=== PATIENT | female | born 1995 | race Two or more races ===

== ENCOUNTER 2024-12-13 10:45 | Emergency (ER) | payer OTHER ==
[~2024-12-13] VITALS: Ht 160 cm; Wt 109.8 kg
[2024-12-13 10:58] VITALS: TEMP 98.2
[2024-12-13 11:02] VITALS: BP 121/65; PULSE 82; RESP 16; O2SAT 98
[2024-12-13 12:13] LABS: Basophils # (auto) 0.1 10 ^3/uL (0-0.2); Basophils % (auto) 0.6 % (0.0-2.0); Eosinophils # (auto) 0.1 10 ^3/uL (0-0.8); Eosinophils % (auto) 1.6 % (0.0-7.0); Hematocrit 40.7 % (36.0-46.0); Hemoglobin 13.5 g/dL (12.2-16.2); Lymphocytes # (auto) 2.3 10 ^3/uL (0.4-5.4); Lymphocytes % (auto) 26.7 % (10.0-50.0); Mean Corpuscular Hemoglobin 28.3 pg (28.0-32.0); Mean Corpuscular Hgb Conc. 33.1 g/dL (32.0-36.0); Mean Corpuscular Volume 85.4 fL (80.0-100.0); Monocytes # (auto) 0.7 10 ^3/uL (0-1.3); Monocytes % (auto) 8.1 % (0.0-12.0); Neutrophils # (auto) 5.5 10 ^3/uL (1.6-8.6); Platelet Count (auto) 299 10^3/uL (140-450); Red Blood Cells 4.76 10^6/uL (4.0-5.20); Red Cell Distribution Width 14.5 % (11.8-14.3); White Blood Cell 8.7 10^3/uL (4.4-10.8)
--- NOTE | 2024-12-13 12:44 | DVH ---
EXAM: US Pelvis Transabdominal and Transvaginal, Complete CLINICAL INDICATION: VAGINAL BLEEDING, VIABILITY TECHNIQUE: Real-time complete transabdominal and transvaginal pelvic ultrasound with image documenta tion. Transvaginal imaging was used for better evaluation of the endometrium and adnexa. COMPARISON: None FINDINGS: UTERUS/CERVIX: Unremarkable. Normal endometrial stripe thickness. No myometrial mass. The uterus measures 8.0 x 4.6 x 4.5 cm. RIGHT OVARY: Unremarkable. Normal blood flow. The right ovary measures 3.2 x 3.5 x 2.4 cm. LEFT OVARY: Unremarkable. Normal blood flow. The left ovary measures 2.6 x 1.6 x 1.9 cm. FREE FLUID: No free fluid. BLADDER: Unremarkable as visualized. Wall is normal thickness for degree of distention. OTHER FINDINGS: . . Gestational sac 1.78 cm. CRL 0.51 cm. ESTEBAN 08/06/2025. Yolk sac visualized. The heart rate 118 beats per minute. . Subchorionic bleed measuring up to 1.1 cm. IMPRESSION: A single live intrauterine corresponding to 6 weeks and 2 day gestation.
[2024-12-13 12:55] LABS: Urine Bacteria None Seen /hpf (None Seen)
[2024-12-13 13:17] LABS: Urine Blood 1+ /uL (Negative); Urine Clarity Clear (Clear); Urine Protein, UAD Negative (Negative); Urine Specific Gravity 1.003 (1.001-1.035); Urine Squamous Epithelial Cell FEW /hpf (<5); Urine Urobilinogen Normal (Negative); Urine WBC 1 /HPF (0-5)
[2024-12-13 13:18] LABS: Urine Color Straw (Yellow)
--- NOTE | 2024-12-13 13:38 | ED.PDOC ---
JEWELRY FACER HPI Comments A 29 YEAR OLD FEMALE PRESENTS TO THE ED WITH COMPLAINT OF VAGINAL SPOTTING DURING . PATIENT STATES SHE IS CURRENTLY AND BEGAN TO EXPERIENCE VAGINAL SPOTTING EARLIER TODAY. PATIENT NOTES THAT SHE HAS A HISTORY OF A SUBCHORIONIC BLEED THAT WAS DISCOVERED DURING HER MOST RECENT ULTRASOUND. PATIENT DENIES DYSURIA, HEMATURIA, VAGINAL DISCHARGE, FEVER, CHILLS, SHORTNESS OF BREATH, CHEST PAIN, ABDOMINAL PAIN, NAUSEA, VOMITING, HEADACHE, OR OTHER COMPLAINTS. NO OTHER SYMPTOMS OR MODIFYING FACTORS AT THIS TIME. PATIENT IS ALERT, ORIENTED X 4, AND HAS STEADY GAIT. Chief Complaint: Vaginal Bleed Time Seen by MD: 11:40 Reviewed Notes: Nurses Notes, Medications, Allergies Allergies: Coded Allergies: NO KNOWN ALLERGIES (Unverified , 12/13/24) Information Source: Patient Mode of Arrival: Ambulatory Timing: Hours Prehospital treatment: None Severity: Moderate Vaginal Discharge: None Vaginal Lesions: None Bleeding Quality: Bright Red Vaginal Mass: None Onset Of Mass/Bleeding: Spontaneous Sexual Activity: Last Consensual [place]: Unknown Control: None History of: Current Blood Type: Unknown Symptoms of Possible : None Associated Signs and Symptoms: Vaginal Bleeding Past Medical History PAST MEDICAL HISTORY: Denies Surgical History: Denies all surgeries ILLUMINATING ENGINEER History: No Pertinent ILLUMINATING ENGINEER History Family History Family History: Reviewed,noncontributory to illness Social History Smoker: Non-Smoker Alcohol: Denies ETOH Use Drugs: Denies Drug Use Lives In: Home Constitutional: denies: chills, diaphoresis, fatigue, fever, malaise, sweats, weakness, others EENTM: denies: blurred vision, double vision, ear bleeding, ear discharge, ear drainage, ear pain, ear ringing, eye pain, eye redness, hearing loss, mouth pain, mouth swelling, nasal discharge, nose bleeding, nose congestion, nose pain, photophobia, tearing, throat pain, throat swelling, voice changes, others Respiratory: denies: cough, hemoptysis, orthopnea, SOB at rest, shortness of breath, SOB with excertion, stridor, wheezing, others Cardiovascular: denies: chest pain, dizzy spells, diaphoresis, Dyspnea on exertion, edema, irregular heart beat, left arm pain, lightheadedness, palpitations, PND, syncope, others Gastrointestinal: denies: abdomen distended, abdominal pain, blood streaked bowels, constipated, diarrhea, dysphagia, difficulty swallowing, hematemesis, melena, nausea, poor appetite, poor fluid intake, rectal bleeding, rectal pain, vomiting, others Genitourinary: reports: abnormal vagina bleeding (VAGINAL SPOTTING ), ; denies: burning, dyspareunia, dysuria, flank pain, frequency, hematuria, incontinence, pain, vagina discharge, urgency, others Neurological: denies: dizziness, fainting, headache, left sided numbness, left sided weakness, numbness, paresthesia, pre-existing deficit, right sided numbness, right sided weakness, seizure, speech problems, tingling, tremors, weakness, others Musculoskeletal: denies: back pain, gout, joint pain, joint swelling, muscle p ain, muscle stiffness, neck pain, others Integumetry: denies: bruises, change in color, change in hair/nails, dryness, laceration, lesions, lumps, rash, wounds, others Allergic/Immunocompromised: denies: Difficulty Healing, Frequent Infections, Hives, Itching, others Hematologic/Lymphatic: denies: anemia, blood clots, easy bleeding, easy bruising, swollen glands, others Endocrine: denies: excessive hunger, excessive sweating, excessive thirst, excessive urination, flushing, intolerance to cold, intolerance to heat, unexplained weight gain, unexplained weight loss, others Psychiatric: denies: anxiety, bipolar disorder, depression, hopeless, panic disorder, schizophrenia, sleepless, suicidal, others All Other Systems: Reviewed and Negative Physical Exam General Appearance: No Apparent Distress, Normal HEENT: Normal ENT Inspection, PERRL/EOMI, Pharynx Normal, TMs Normal Neck: Full Range of Motion, Non-Tender, Normal, Normal Inspection Respiratory: Chest Non-Tender, Lungs Clear, No Accessory Muscle Use, No Respiratory Distress, Normal Breath Sounds Cardiovascular: No Edema, No JVD, No Murmur, No Gallop, Normal Peripheral Pulses, Regular Rate/Rhythm Breast Exam: Deferred Gastrointestinal: No Organomegaly, Non Tender, No Pulsatile Mass, Normal Bowel Sounds, Soft Genitalia: Deferred Pelvic: Normal Adnexa, Normal External Exam, Vaginal Bleeding (VAGINAL SPOTTING, NO VAGINAL BLEEDING AND BLOOD CLOTS. ) Rectal: Deferred Extremities: No calf tenderness, Normal capillary refill, Normal inspection, Normal range of motion, Non-tender, No pedal edema Musculoskeletal : Apperance: Normal Neurologic: Alert, drafting teacher II-XII nml as Tested, No Motor Deficits, Normal Affect, Normal Mood, No Sensory Deficits Cerebellar Function: Normal Reflexes: Normal Skin: Dry, Normal Color, Warm Peripheral Pulses: 2+ carotid (R), 2+ carotid (L) Lymphatic: No Adenopathy Was a procedure done? Was a procedure done?: No Differential Diagnosis (ILLUMINATING ENGINEER) Vaginal Bleeding: - Complete, - Missed, - Threatened, Ectopic , UTI, Vaginitis Mass / Lesion: N/A Vaginal Discharge: N/A X-Ray, Labs, Meds, VS Vital Signs Date Time Temp Pulse Resp B/P (MAP) Pulse Ox O2 Delivery O2 Flow Rate FiO2 12/13/24 11:02 98.2 82 16 121/65 (83) 98 12/13/24 10:58 82 16 98 Room Air 12/13/24 10:58 98.2 82 16 121/65 (83) 98 98.2 Lab Test 12/13/24 12:55 12/13/24 11:39 Range/Units Urine Color Straw Yellow Urine Clarity Clear Clear Urine pH 7.0 5.0-9.0 Urine Specific [place] 1.003 1.001-1.035 Urine Protein Negative Negative Urine Ketones Negative Negative Urine Blood 1+ H Negative /uL Urine Nitrite Negative Negative Urine Bilirubin Negative Negative Urine Urobilinogen Normal Negative mg/dL Urine Leukocyte Esterase Negative Negative /uL Urine RBC 1 0 - 4 /hpf Urine Microscopic WBC 1 0-5 /HPF Urine Squamous Epithelial Cells Few <5 /hpf Urine Bacteria None seen None Seen /hpf Urine Glucose Normal Normal mg/dL White Blood Count 8.7 4.4-10.8 10^3/uL Red Blood Count 4.76 4.0-5.20 10^6/uL Hemoglobin 13.5 12.2-16.2 g/dL Hematocrit 40.7 36.0-46.0 % Mean Corpuscular Volume 85.4 80.0-100.0 fL Mean Corpuscular Hemoglobin 28.3 28.0-32.0 pg Mean Corpuscular Hemoglobin Concent 33.1 32.0-36.0 g/dL Red Cell Distribution Width 14.5 H 11.8-14.3 % Platelet Count 299 140-450 10^3/uL Mean Platelet Volume 8.9 6.9-10.8 fL Neutrophils (%) (Auto) 63.0 37.0-80.0 % Lymphocytes (%) (Auto) 26.7 10.0-50.0 % Monocytes (%) (Auto) 8.1 0.0-12.0 % Eosinophils (%) (Auto) 1.6 0.0-7.0 % Basophils (%) (Auto) 0.6 0.0-2.0 % Neutrophils # (Auto) 5.5 1.6-8.6 10 ^3/uL Lymphocytes # (Auto) 2.3 0.4-5.4 10 ^3/uL Monocytes # (Auto) 0.7 0-1.3 10 ^3/uL Eosinophils # (Auto) 0.1 0-0.8 10 ^3/uL Basophils # (Auto) 0.1 0-0.2 10 ^3/uL Nucleated Red Blood Cells 0.0 % Beta HCG, Quantitative 79385.9 H 1.5-4.2 mIU/mL EXAM: US Pelvis Transabdominal and Transvaginal, Complete CLINICAL INDICATION: VAGINAL BLEEDING, VIABILITY TECHNIQUE: Real-time complete transabdominal and transvaginal pelvic ultrasound with image documentation. Transvaginal imaging was used for better evaluation of the endometrium and adnexa. COMPARISON: None FINDINGS: UTERUS/CERVIX: Unremarkable. Normal endometrial stripe thickness. No myometrial mass. The uterus measures 8.0 x 4.6 x 4.5 cm. RIGHT OVARY: Unremarkable. Normal blood flow. The right ovary measures 3.2 x 3.5 x 2.4 cm. LEFT OVARY: Unremarkable. Normal blood flow. The left ovary measures 2.6 x 1.6 x 1.9 cm. FREE FLUID: No free fluid. BLADDER: Unremarkable as visualized. Wall is normal thickness for degree of distention. OTHER FINDINGS: . . Gestational sac 1.78 cm. CRL 0.51 cm. ESTEBAN 08/06/2025. Yolk sac visualized. The heart rate 118 beats per minute. . Subchorionic bleed measuring up to 1.1 cm. IMPRESSION: A single live intrauterine corresponding to 6 weeks and 2 day gestation. ATED BY: PEG MORALES MD DICTATED DATE/TIME: 12/13/24 1241 SIGNED BY: PEG MORALES MD SIGNED DATE/TIME: 12/13/24 1241 CC: X-Ray, Labs, Meds, VS Comment EXTERNAL MEDICAL RECORDS REVIEWED: [NONE] INDEPENDENT HISTORIANS: [NONE] SOCIAL DETERMINANTS OF HEALTH: [NONE] LABS ORDERED: CBC, UA, BETA HCG QUANT, ABO/RH REVIEWED AND INTERPRETED RESULTS: BETA HCG QUANT 31,589.9, BLOOD 1+ IMAGING ORDERED: US OB < 14 WKS TREATMENTS ORDERED: NONE PROCEDURES PERFORMED: NONE CRITICAL CARE TIME: NONE I HAVE DISCUSSED THE PATIENT WITH THE ATTENDING PHYSICIAN DR. BRADY AND SHE AGREES WITH THE PATIENT'S PLAN OF CARE AND DISPOSITION. BASED ON HISTORY OF PRESENT ILLNESS, AND PHYSICAL EXAM, PATIENT WILL BE DISCH ARGED HOME. SHARED DECISION MAKING: PATIENT INSTRUCTED TO FOLLOW UP WITH PRIMARY CARE PROVIDER IN 1-2 DAYS FOR RE-EVALUATION OF SYMPTOMS. PATIENT VERBALIZES UNDERSTANDING TO RETURN TO ED FOR NEW OR WORSENING SYMPTOMS OR IF FOLLOW UP WITH PCP CANNOT BE OBTAINED. PATIENT FEELS COMFORTABLE GOING HOME AT THIS TIME. ALL QUESTIONS ADDRESSED AT TIME OF DISCHARGE. Images Reviewed?: Images reviewed and evaluated by me Time of 1ST Reevaluation: 13:40 Reevaluation 1ST: Improved Patient Education/Counseling: Diagnosis, Treatment, Need For Follow Up Family Education/Counseling: Diagnosis, Treatment, Need For Follow Up Medical Screening: No EMC Exist At This Time Departure 1 Departure Time of Disposition: 13:40 Impression: Primary Impression: Vaginal spotting Additional Impression: Threatened in first trimester Disposition: HOME / SELF CARE / HOMELESS Condition: Stable Additional Instructions: FOLLOW-UP WITH PCP AND JEWELRY FACER IN 1 TO 2 DAYS. TAKE MEDICATIONS PRESCRIBED. RETURN TO ED FOR ANY NEW OR WORSENING SYMPTOMS. Discharged With: Self Critical Care Note Critical Care Time?: No Stability Stability form required: No I personally scribed for ABDI RICKETTS ([email or web address]) on 12/13/24 at 13:38. Electronically submitted by Earl Bullock ([email or web address]). ABDI RICKETTS Dec 13, 2024 13:38
== END 2024-12-13 13:41 | disposition home or self-care (01) ==
LOC: ER 10:45
DX: O20.0 Threatened abortion (principal); N93.9 Abnormal uterine and vaginal bleeding, unspecified; Z3A.01 Less than 8 weeks gestation of pregnancy
CPT/HCPCS: 36415; 76801; 76817; 81001; 84702; 85025; 86900; 86901

== ENCOUNTER 2025-08-06 06:43 | Observation (INO) | payer OTHER ==
[2025-08-06] MEDS ORDERED: PREN1TAB71 OR (16:47)
--- NOTE | 2025-08-06 17:11 | DVH ---
EXAM: US BIOPHYSICAL PROFILE HISTORY: TERM COMPARISON: None TECHNIQUE: Multiple transabdominal real-time grayscale sonographic images through the gravid uterus of the fetus with duplex Doppler color flow and M-mode spectral analysis Findings/Impression: Single live intrauterine in vertex presentation with heart rate of 156 bpm. Biophysical profile was performed with 2 points for respirations, 2 points for movement, 2 points for tone and 2 points for amniotic fluid index. Biophysical profile score of 8/8. Amniotic fluid is within normal limits with MARTÍN 13.5 cm and MVP 5.6 cm. Normal MARTÍN (5-25 cm) Normal MVP (2-8 cm)
--- NOTE | 2025-08-07 15:35 | DVHDS2 ---
Physician Discharge Progress N Final Diagnosis: iup at 40wks labor check Operations or Procedures: Operations or Procedures nst reactive reviwed,sono Condition on Discharge: Good Disposition: Home Discharge Instructions: Diet: Regular Activity: No Restrictions, As Tolerated Medications: na Follow Up Care: Specialist: 2d Discharge Statement: "Patient was advised to return to the ER or call 911 if any headaches, dizziness, shortness of breath, chest pain, abdominal pain, bleeding, fevers, or worsening of medical condition. Patient was counseled about treatment plan, medications, possible side effects, patientverbalized understanding. All questions were answered to the best of my ability. This discharge took greater then 30 minutes in planning, reviewing documentation, counseling the patient, and discussing with other team members." Visit Coding OBGYN Date of Service: Aug 06, 2025 Billing Provider: TAMARA YOUNG DO STAGE DIRECTOR Common Visit Codes: [id number] OBS CARE (HIGH) STAGE DIRECTOR Procedure Codes: 06951-79- NON-STRESS TEST TAMARA YOUNG DO Aug 07, 2025 15:35
== END 2025-08-06 18:00 | disposition home or self-care (01) ==
LOC: UNDOADMOB 16:13 → LDRP 16:13 → UNDODISOB 18:00
PROVIDERS: ADMIT Obstetrics & Gynecology; ATTEND Obstetrics & Gynecology
DX: O48.0 Post-term pregnancy (principal); Z3A.40 40 weeks gestation of pregnancy; Z98.890 Other specified postprocedural states
CPT/HCPCS: 76818; 81002; G0378; 59025; 76819

== ENCOUNTER 2025-08-08 04:46 | Inpatient (IN) | payer OTHER ==
[~2025-08-08] VITALS: Ht 160 cm; Wt 122.9 kg
[~2025-08-08 04:46] MED LIST: PREN1TAB71 OR
--- NOTE | 2025-08-08 09:53 | DVH ---
BIOPHYSICAL PROFILE HISTORY: Term TECHNIQUE: Multiple transabdominal real-time grayscale sonographic images through the gravid uterus o f the fetus with duplex doppler color flow and M-mode spectral analysis FINDINGS: BIOPHYSICAL PROFILE: breathing score: 2 movement score: 2 tone score: 2 Quantitative MARTÍN score: 2 (MARTÍN: 8.45 cm.) Total score: 8/8 Single live fetus in cephalic presentation. heart rate 139 beats per minute. Posterior placenta without previa or abruption Biophysical profile score 8/8 corresponding to an ESTEBAN of 08/06/25 IMPRESSION: Biophysical profile score: 8/8
--- NOTE | 2025-08-08 10:09 | DVHDS2 ---
Physician Discharge Progress N Final Diagnosis: IUP 40 wk, Term Operations or Procedures: Operations or Procedures NST/BPP MARTÍN all WNL Condition on Discharge: Stable Disposition: Home Discharge Instructions: Diet: Regular Activity: Light activity Follow Up/Referral: as scheduled Medications: NA Follow Up Care: Discharge Statement: "Patient was advised to return to the ER or call 911 if any headaches, dizziness, shortness of breath, chest pain, abdominal pain, bleeding, fevers, or worsening of medical condition. Patient was counseled about treatment plan, medications, possible side effects, patientverbalized understanding. All questions were answered to the best of my ability. This discharge took greater then 30 minutes in planning, reviewing documentation, counseling the patient, and discussing with other team members." Visit Coding OBGYN Date of Service: Aug 08, 2025 Billing Provider: HAJA QUINTERO DO CORE DIPPER Common Visit Codes: 68768-RGZ/OBS SAME DATE (MOD) CORE DIPPER Procedure Codes: 51455-57- NON-STRESS TEST HAJA QUINTERO DO Aug 08, 2025 10:09
[2025-08-08 13:41] LABS: Hematocrit 38.0 % (36.0-46.0); Hemoglobin 12.7 g/dL (12.2-16.2); Mean Corpuscular Hemoglobin 28.5 pg (28.0-32.0); Mean Corpuscular Volume 85.8 fL (80.0-100.0); Nucleated Red Blood Cells % 0.1 %
[2025-08-08 13:56] LABS: Protein, Urine 10.0 mg/dL (1-14)
[2025-08-08 13:56] LABS: INR 0.99 (0.9-1.15); Partial Thromboplastin Time 30.4 SEC (24.5-34.5); Prothrombin Time 10.5 sec (9.3-11.8)
[2025-08-08 14:02] LABS: Alanine Aminotransferase 11 U/L (7-40); Anion Gap 12 (5-15); BUN/Creatinine Ratio 6.6 (10.0-20.0); Calcium 9.1 mg/dL (8.7-10.4); Carbon Dioxide 20 mmol/L (20-31); Chloride 106 mmol/L (98-107); Glucose 78 mg/dL (74-106); Potassium 4.3 mmol/L (3.5-5.1); Sodium 138 mmol/L (136-145); Total Protein 6.5 g/dL (5.7-8.2); Uric Acid 4.3 mg/dL (3.1-7.8)
[2025-08-08 14:02] LABS: Urine Protein, UAD Negative (Negative)
[2025-08-08 14:03] LABS: Albumin 3.8 g/dL (3.2-4.8); Alkaline Phosphatase 141 U/L (46-116); Bilirubin, Total 0.6 mg/dL (0.2-1.0); Blood Urea Nitrogen 5 mg/dL (9-23)
--- NOTE | 2025-08-08 15:15 | DVHHP2 ---
OB CC & HPI Date Date of Admission: Aug 08, 2025 Patient Identification: : 1 Para: 0 EGA: 40.2 Chief Complaints: Reason for admission: active labor History of Present Complaints 30y G1po IUP 40.2 wk. Normal Presented for NST and found to have some contractions Observed for labor w/ subsequent dilation to 3-4 cm. Moderate pain, requesting epidural Past Medical History Cardiac: No pertinent Hx Pulmonary: No pertinent Hx Central Nervous System: No pertinent Hx GI: No pertinent Hx Hemotology/Oncology: No pertinent Hx Hepatobiliary: No pertinent Hx Psychiatric: No pertinent Hx Musculoskeletal: No pertinent Hx Rheumotologic: No pertinent Hx Infectious Disease: No peritnent Hx ENT: No pertinent Hx Renal/: No pertinent Hx Endocrine: No pertinent Hx Dermatology: No pertinent Hx Past Surgical History: No pertinent Hx OB History OB History Care: Good Care Ultrasounds: Normal mid trimester US Obstetrical Complications: None Medical Complications: None Allergies: Coded Allergies: NO KNOWN ALLERGIES (Unverified , 12/13/24) Home Meds Reported Medications Vit W/ Ferrous Fumara (PNV PLUS MULTIVI) Plus Tab, 1 OR, TAB 08/06/25 Family & Social History Family/Social History Blood Type: O+ Rubella: immune RPR/VDRL: Negative GBS Status: Negative HBsAG: Negative Review of Systems Constitutional: No symptom reported Ears, Nose, & Throat: No symptom reported Eyes: No symptom reported Pulmonary/Respiratory: No symptom reported Cardiovascular: No symptom reported Gastrointestinal: No symptom reported Genitourinary: No symptom reported Musculoskeletal: No symptom reported Skin: No symptom reported Psychiatric: No symptom reported Endocrine: No symptom reported Hemotologic/Lymphatic: No symptom reported OB Admission Exam Physical Exam HEENT: NCAT Heart: Rhythm Normal Lungs: Clear Abdomen: Gravid Extremities: Normal Reflexes: Normal Cervical Dilatation: 3cm Effacement: 50% Station: -2 Membranes: Intact Heart Rate: 130's Accelerations: Accelerations Present Decelerations: No Decelerations Short Term Variability: Present Market Research Manager Variability: Average (6-25) Contractions on Admission: 6-10 Minutes Apart Intensity: Moderate OB Plan Plan Admitting Diagnosis: Term IUP in early labor Categ 1 tracing GBS neg Plan: Expectant Management Other Plan: Admit for labor and delivery informed consent for treatment obtained Visit Coding OBGYN Date of Service: Aug 08, 2025 Billing Provider: HAJA QUINTERO DO PET COUNSELOR Common Visit Codes: [id number] INP/OBS CARE (HIGH) HAJA QUINTERO DO Aug 08, 2025 15:15
[2025-08-08] MEDS ORDERED: NALBUPHINE HCL 10 MG/1ml INJECTION IV PRN (15:45)
[2025-08-08] MEDS: LIDOCAINE HCL 2 %PF INJ 10ML AMP IJ ONE (16:15)
[2025-08-08] MEDS ORDERED: ONDANSETRON HCL 4 MG/2 ML VIAL IV PRN (16:15)
[2025-08-08] MEDS: LACT. RINGERS/OXYTOCIN 20UNITS 500 ML IV ONE ×2 (16:15→16:45)
[2025-08-08] MEDS: NALOXONE HCL 0.4 MG/ML VIAL IV ONE (16:15)
[2025-08-08] MEDS: LACTATED RINGER'S 1,000 ML IV SCH (16:32)
[2025-08-08] MEDS: LACTATED RINGER'S 1,000 ML IV ONE (16:32)
[2025-08-08] MEDS: WITCH HAZEL-GLYCERIN PAD TOP PRN (16:32)
[2025-08-08] MEDS: DERMOPLAST 60ML BOTTLE TOP PRN (16:32)
[2025-08-08] MEDS: PHISODERM TOP SOLN 240ML BTL TOP PRN (16:32)
[2025-08-08 17:16] LABS: Amphetamine Screen, Urine Neg (NEGATIVE); Barbiturate Scree,Urine Neg (NEGATIVE); Benzodiazephine Screen, Urine Neg (NEGATIVE); Cannabinoid Screen, Urine Neg (NEGATIVE); Cocaine Screen, Urine Neg (NEGATIVE); Opiate Scree,Urine Neg (NEGATIVE); Phencyclidine Screen, Urine Neg (NEGATIVE)
[2025-08-08] MEDS: ROPIVACAINE HCL 100 ML ONE (17:27)
[2025-08-08] MEDS: fentaNYL CITRATE 100 MCG/2 ML VL IV ONE (17:27)
--- NOTE | 2025-08-08 17:39 | EPIDURAL ---
Anesthesia Procedural Note - Epidural Informed consent obtained?: Yes Medication Administered: Fentanyl 100 mcg Spinal level of insertion: L4-L5 Test dose of lidocaine & Epine: Negative Infusion started: Yes Start time: 16:55 End time: 17:25 Procedure description Procedure description: Called for labor analgesia. History taken, chart reviewed and patient examined. Patient is requesting epidural. Informed consent for CSE obtained (BP 120/80 HR 104 spO2 99). Sitting position, sterile prep and drape. L4-5 space infiltrated with 1% lido. Epidural needle placed with JSOIE at 7cm. 25G sinal needle +clear SF. 15mcg fentanyl given IT. Epidural catheter secured at 13cm. Aspiration and test dose (3cc1.5% lido with epi) negative (BP 115/74 HR 96 spO2 98). 85mcg fentanyl given via epidural. Patient reports good pain relief. 0.2% ropivacaine infusion started ((BP 113/69 HR 88 spO2 99). Will follow as needed. CLARISA SMITH MD Aug 08, 2025 17:39
[2025-08-08] MEDS ORDERED: diphenhdrAMINE HCL 50 MG/1 ML VL IV PRN (17:45)
[2025-08-08] MEDS ORDERED: TERBUTALINE SULFATE 1 MG/ML 1ML VIAL SC PRN (19:15)
[2025-08-08] MEDS: LACT. RINGERS/OXYTOCIN 20UNITS 1,000 ML IV SCH (19:49)
[2025-08-09] VITALS (14 sets, daily range): BP systolic 108–136; BP diastolic 60–84; PULSE 69–92; RESP 16–18; TEMP 98.2–99; O2SAT 97–100
--- NOTE | 2025-08-09 01:57 | DVHPN2 ---
Progress Note - Dictate Date Seen: Aug 09, 2025 Medical Necessity Reason Pt with a Central, PICC or Fol: No Subjective G1Po in labor 40+ wk Patient complete 10cm dilated x 2 hours vital signs Vital Sign Date Time Temp Pulse Resp B/P (MAP) Pulse Ox O2 Delivery O2 Flow Rate FiO2 08/08/25 17:27 113/59 Gen: Alert, Moderate pain Abd: obese, Gravid Cervix: C/C/+1 + Caput noted FHR: 170's x 30 mins w/ mod variability, prolonged decel x 2 mins w /pushing. Previously recurrent moderate variable decels (Categ 2) Clinical EFW 8lbs medications Current Medications Medications Dose Ordered Sig/Reva Route Start Time Stop Time Status Last Admin Dose Admin Lactated Ringer's 1,000 ml @ 125 mls/hr Q8H IV 08/08/25 15:45 08/09/25 01:10 125 MLS/HR Nalbuphine HCl 10 mg Q4HP PRN IV 08/08/25 15:45 Witch Sivan 1 pad PRN PRN TOP 08/08/25 15:45 08/08/25 16:32 1 PAD Sodium Lauryl Sulfate 240 ml PRN PRN TOP 08/08/25 15:45 08/08/25 16:32 240 ML Benzocaine 1 applic PRN PRN TOP 08/08/25 15:45 08/08/25 16:32 1 APPLIC Lidocaine HCl 20 ml ONCE PRN IJ 08/08/25 15:45 Ondansetron HCl 4 mg Q6HPRN PRN IV 08/08/25 16:15 Diphenhydramine HCl 25 mg Q6HP PRN IV 08/08/25 17:45 Oxytocin 1,000 ml @ 6 ml/hr Q24H IV 08/08/25 19:15 08/08/25 19:49 6 ML/HR Terbutaline Sulfate 0.25 mg ONCE PRN SC 08/08/25 19:15 laboratory and microbiology Laboratory Tests 08/08/25 13:11 Test 08/08/25 13:11 Range/Units Serum Glucose 78 74-106 mg/dL Assessment/Plan 1. Arrest of descent 2. CPD 3. Persistant categ 2 FHR , fetus at risk Plan: Consented for primary C/S delivery due to poor pushing effort and intolerance to labor, no descent with pushing. station not appropriate for operative vaginal delivery (Vacuum) R/B/A of C/S discussed. Risks of scar, pain, bleeding, infection, poss injury to bowel/bladder, vessels, blood transfusion discussed. Plan discussed with: Patient, Other (RN and Anesthesia MD) HAJA QUINTERO DO Aug 09, 2025 01:57
[2025-08-09] MEDS: LIDOCAINE HCL 2 %PF INJ 10ML AMP IJ ONE ×2 (01:58→02:23)
[2025-08-09] MEDS ORDERED: BUPIVACAINE/DEXTROSE MPF 0.75% 2 ML AMP IT ONE (02:15)
[2025-08-09] MEDS ORDERED: KETOROLAC TROMETH 30 MG/ML 1ML VIAL ONE (02:15)
[2025-08-09] MEDS ORDERED: GLYCOPYRROLATE 0.2 MG/ML 1ML VIAL ONE (02:15)
[2025-08-09] MEDS ORDERED: ONDANSETRON HCL 4 MG/2 ML VIAL ONE (02:15)
[2025-08-09] MEDS: LACTATED RINGER'S 1,000 ML IV SCH ×2 (02:15→05:00)
[2025-08-09] MEDS ORDERED: fentaNYL CITRATE 100 MCG/2 ML VL ONE (02:15)
[2025-08-09] MEDS ORDERED: MORPHINE SULF PF 5 MG/10 ML VIAL ONE (02:15)
[2025-08-09] MEDS: LACTATED RINGER'S 1,000 ML IV ONE (02:15)
[2025-08-09] MEDS: AZITHROMYCIN 500MG/ 250ML 250 ML IV ONE ×2 (02:28→02:29)
[2025-08-09] MEDS: ROPIVACAINE HCL 100 ML ONE (02:30)
[2025-08-09] MEDS: ceFAZolin 2 GM/D5W50ml 50 ML IV ONE (03:00)
[2025-08-09] MEDS: ceFAZolin 1GM/50ML 50 ML IV ONE (03:00)
[2025-08-09] MEDS ORDERED: MIDAZOLAM HCL 2MG/2ML 2ml VIAL (1mg/ml) ONE (03:13)
[2025-08-09] MEDS: TRANEXAMIC ACID 10 ML ONE (03:13)
[2025-08-09] MEDS ORDERED: NALOXONE HCL 0.4 MG/ML VIAL IV PRN (04:00)
[2025-08-09] MEDS ORDERED: ONDANSETRON HCL 4 MG/2 ML VIAL IV PRN ×2 (04:00→05:00)
[2025-08-09] MEDS ORDERED: diphenhdrAMINE HCL 50 MG/1 ML VL IV PRN (04:00)
--- NOTE | 2025-08-09 04:10 | DVHOP ---
DATE OF SURGERY: 08/09/2025 PREOPERATIVE DIAGNOSES: * Term intrauterine 40 weeks and 3 days. * Category 2 heart rate tracing. * Arrest of descent. * Cephalopelvic disproportion. FINAL DIAGNOSES: * Term intrauterine 40 weeks and 3 days. * Category 2 heart rate tracing. * Arrest of descent. * Cephalopelvic disproportion. * Persistent occiput posterior. * Meconium fluid. * Uterine Atony PROCEDURES PERFORMED: Primary low transverse section via Pfannenstiel skin incision. SURGEON: Kenn Jaffe DO BAKER HELPER: Skein Yard Drier. TYPE OF ANESTHESIA: Epidural. ANESTHESIOLOGIST: Yancy Friedman MD DESCRIPTION OF FINDINGS: Delivery of a liveborn female , cephalic presentation, occiput posterior, caput and head molding present, no nuchal cord, 3+ particulate meconium fluid, normal placenta, 3-vessel cord, uterine atony, 2-layer uterine closure, normal bilateral fallopian tubes and ovaries. TECHNICAL PROCEDURE: After informed consent was obtained, the patient was taken to the operating room where her epidural anesthesia was found to be adequate. She was placed in the supine position with a slight leftward tilt. She was sterilely prepped and draped in the usual fashion. A Pfannenstiel skin incision was made with the scalpel. The incision developed sharply to the underlying layer of fascia. The fascia was tented and the rectus muscles dissected off the rectus fascia. Entry into the peritoneal cavity was performed bluntly. The peritoneal incision was extended superiorly and inferiorly with good visualization of the bladder. The Rj O retractor was placed into the incision. Using a 2nd scalpel, the lower uterine segment was incised in a low transverse fashion. The uterus was entered bluntly. The uterine incision was manually stretched. The baby was found to be in occiput posterior position with meconium fluid present. The baby was delivered atraumatically. After delivery of the , the nose and mouth were suctioned. The cord was clamped and cut and the baby handed off to waiting pediatric team. Cord blood and cord gases were obtained. The placenta was spontaneously delivered. The uterus was exteriorized and cleared of all clots and debris using moist laparotomy sponges. The uterine incision was repaired in 2 layers using #0 Stratafix spiral in 2 layers. Excellent tissue approximation and hemostasis was obtained. The uterus was returned to the abdomen. The cul-de-sac and pericolic gutters were cleared of all clots and debris. The abdomen was irrigated with sterile water. SNoW was placed in the patient's right lower quadrant at the site for added hemostasis. All instrumentation was removed from the patient's abdomen. The lap counts were correct. The peritoneum was not closed. The rectus fascia was then closed using #1 PDS in continuous running fashion with good tissue approximation. The subcutaneous tissue was irrigated, bleeding points controlled with cautery. The subcutaneous tissue was closed in continuous fashion using 2-0 plain gut. The skin was closed in subcuticular fashion using 2-0 Monocryl. A thin layer of Dermabond was then placed over the incision. After the Dermabond dried, the Sylke sterile dressing was placed over the incision. The patient tolerated the procedure well. Sponge, lap, and needle counts were correct x 4. INTRAOPERATIVE COMPLICATIONS: None. MEDICATIONS: Ancef 3 g IV, azithromycin 500 mg IV, IV Pitocin, tranexamic acid IV. SPECIMENS: Cord blood, cord gases, placenta. POSTOPERATIVE CONDITION: Stable. EBL: 900 mL DO REBECCA Simons/REMY TID: [id number] RECEIPT: [id number] MTDD
[2025-08-09] MEDS: LIDOCAINE 2%HCL (LOCAL ANESTH.) INJ 20ML MDV IJ PRN (07:00)
[2025-08-09] MEDS: ACETAMINOPHEN IV 1000 MG/100ML (10MG/ML) IV ONE (07:07)
[2025-08-09 09:03] LABS: Hematocrit 35.6 % (36.0-46.0); Hemoglobin 12.0 g/dL (12.2-16.2); Mean Corpuscular Hemoglobin 29.0 pg (28.0-32.0); Mean Corpuscular Volume 85.9 fL (80.0-100.0); Nucleated Red Blood Cells % 0.0 %
--- NOTE | 2025-08-09 09:59 | DVHPN2 ---
Visit Coding OBGYN Date of Service: Aug 09, 2025 Billing Provider: HAJA QUINTERO DO REGULATORY TECHNICIAN Common Visit Codes: PROCEDURE ONLY REGULATORY TECHNICIAN Procedure Codes: [id number] OB CARE, HAJA MAGANA DO Aug 09, 2025 09:59
[2025-08-09] MEDS ORDERED: ceFAZolin 2 GM/D5W50ml 50 ML IV SCH (11:00)
[2025-08-09] MEDS: ceFAZolin 2 GM/D5W50ml 50 ML IV SCH (11:04)
[2025-08-09] MEDS ORDERED: IBUP-1455 PO (12:05)
[2025-08-09] MEDS ORDERED: HYDR-4902 PO (12:05)
[2025-08-09] MEDS: ACETAMINOPHEN IV 1000 MG/100ML (10MG/ML) IV PRN (15:10)
[2025-08-09] MEDS: KETOROLAC TROMETH 30 MG/ML 1ML VIAL IV PRN (21:40)
[2025-08-10 03:59] LABS: Hematocrit 35.5 % (36.0-46.0); Hemoglobin 11.8 g/dL (12.2-16.2); Mean Corpuscular Hemoglobin 29.3 pg (28.0-32.0); Mean Corpuscular Volume 88.4 fL (80.0-100.0); Nucleated Red Blood Cells % 0.0 %
[2025-08-10 04:14] LABS: Alanine Aminotransferase 14 U/L (7-40); Albumin 3.7 g/dL (3.2-4.8); Anion Gap 9 (5-15); BUN/Creatinine Ratio 11.9 (10.0-20.0); Blood Urea Nitrogen 10 mg/dL (9-23); Calcium 9.0 mg/dL (8.7-10.4); Carbon Dioxide 24 mmol/L (20-31); Chloride 106 mmol/L (98-107); Glucose 96 mg/dL (74-106); Potassium 4.4 mmol/L (3.5-5.1); Sodium 139 mmol/L (136-145); Total Protein 6.4 g/dL (5.7-8.2)
[2025-08-10 04:15] LABS: Alkaline Phosphatase 123 U/L (46-116); Bilirubin, Total 0.5 mg/dL (0.2-1.0)
[2025-08-10] MEDS ORDERED: HYDROcodone-ACET 5/325MG TAB PO PRN (04:30)
[2025-08-10] MEDS: HYDROcodone-ACET 5/325MG TAB PO PRN (05:04)
[2025-08-10] MEDS: SIMETHICONE 80 MG CHEWABLE TABLET PO SCH (05:04)
[2025-08-10] MEDS: ONDANSETRON HCL 4 MG/2 ML VIAL IV PRN (05:04)
--- NOTE | 2025-08-10 06:47 | DVHPN2 ---
Progress Note Date Seen: Aug 10, 2025 Subjective POD#1 s/p pLTCS for arrest of descent/ Categ 2 FHR Pain controlled. lochia mild vital signs Vital Sign Date Time Temp Pulse Resp B/P (MAP) Pulse Ox O2 Delivery O2 Flow Rate FiO2 08/09/25 23:00 98.2 71 16 113/77 (89) 100 98.2 08/09/25 19:00 Room Air 08/09/25 04:28 0 97 Total Intake and Output 08/09/25 08/09/25 08/10/25 15:00 23:00 07:00 Output Total 500 ml 1650 ml Balance -500 ml -1650 ml medications Current Medications Medications Dose Ordered Sig/Reva Route Start Time Stop Time Status Last Admin Dose Admin Anitha Donaldel 1 pad PRN PRN TOP 08/08/25 15:45 08/08/25 16:32 1 PAD Sodium Lauryl Sulfate 240 ml PRN PRN TOP 08/08/25 15:45 08/08/25 16:32 240 ML Benzocaine 1 applic PRN PRN TOP 08/08/25 15:45 08/08/25 16:32 1 APPLIC Diphenhydramine HCl 25 mg Q4HP PRN IV 08/09/25 04:00 Lactated Ringer's 1,000 ml @ 125 mls/hr Q8H IV 08/09/25 05:00 Ondansetron HCl 4 mg Q4HP PRN IV 08/09/25 05:00 Cancel Cefazolin Sodium/ Dextrose 50 ml @ 50 mls/hr Q8HR IV 08/09/25 11:00 08/10/25 03:53 50 MLS/HR Docusate Sodium 100 mg Q12HR PO 08/10/25 10:00 Dimethicone 80 mg QID PO 08/10/25 06:00 08/10/25 05:04 80 MG Ibuprofen 800 mg Q8HP PRN PO 08/10/25 04:30 Acetaminophen/ Hydrocodone Bitart 1 tab Q4HPRN PRN PO 08/10/25 04:30 Acetaminophen/ Hydrocodone Bitart 2 tab Q4HPRN PRN PO 08/10/25 04:30 08/10/25 05:04 2 TAB Ondansetron HCl 4 mg Q4HPRN PRN IV 08/10/25 05:00 08/10/25 05:04 4 MG laboratory and microbiology Laboratory Tests 08/10/25 03:41 Test 08/10/25 03:41 Range/Units Serum Glucose 96 74-106 mg/dL Objective O: AFVSS Chest: heart and lung sounds normal. Abd soft, non-tender, fundus firm, BS, no rebound or guarding, Incision - dressing and incision clean, dry, intact Ext Neg Homans, Non-tender, edema Lochia - minimal Labs Reviewed Assessment/Plan POD#1 s/p pLTCS doing well Advance care Pain control Plan discussed with: Patient, Other (RN and Anesthesia MD) Visit Coding OBGYN Date of Service: Aug 10, 2025 Billing Provider: HAJA QUINTERO DO SUBCONTRACT ADMINISTRATOR Common Visit Codes: [id number] INP/OBS CARE(HIGH) HAJA QUINTERO DO Aug 10, 2025 06:47
[2025-08-10] MEDS: DOCUSATE SOD 100 MG CAP PO SCH (10:29)
[2025-08-10 11:13] VITALS: BP 100/40; PULSE 83; RESP 18; TEMP 98; O2SAT 97
[2025-08-10 14:58] VITALS: BP 109/77; PULSE 83; RESP 18; TEMP 98.1; O2SAT 100
[2025-08-10 19:10] VITALS: BP 124/77; PULSE 74; RESP 16; TEMP 97.9; O2SAT 99
[2025-08-10] MEDS: IBUPROFEN 800 MG TAB PO PRN (22:24)
[2025-08-10 23:04] VITALS: BP 129/68; PULSE 76; RESP 16; TEMP 98.1; O2SAT 99
[2025-08-11 03:23] VITALS: BP 116/64; PULSE 67; RESP 16; TEMP 98; O2SAT 99
--- NOTE | 2025-08-11 05:49 | DVHDS2 ---
Discharge Summary Date of Admission Aug 08, 2025 at 15:00 Date of Discharge: Aug 11, 2025 Admitting Diagnosis Labor Wounds: Pfannenstiel clean dry intact Labs/Diagnostic Data: Laboratory Results Test 08/10/25 03:41 08/09/25 08:20 08/08/25 13:11 08/08/25 13:00 White Blood Count 19.4 10^3/uL (4.4-10.8) Red Blood Count 4.02 10^6/uL (4.0-5.20) Hemoglobin 11.8 g/dL (12.2-16.2) Hematocrit 35.5 % (36.0-46.0) Mean Corpuscular Volume 88.4 fL (80.0-100.0) Mean Corpuscular Hemoglobin 29.3 pg (28.0-32.0) Mean Corpuscular Hemoglobin Concent 33.2 g/dL (32.0-36.0) Red Cell Distribution Width 15.2 % (11.8-14.3) Platelet Count 194 10^3/uL (140-450) Mean Platelet Volume 10.1 fL (6.9-10.8) Neutrophils (%) (Auto) 73.2 % (37.0-80.0) Lymphocytes (%) (Auto) 17.8 % (10.0-50.0) Monocytes (%) (Auto) 8.4 % (0.0-12.0) Eosinophils (%) (Auto) 0.4 % (0.0-7.0) Basophils (%) (Auto) 0.2 % (0.0-2.0) Neutrophils # (Auto) 14.2 10 ^3/uL (1.6-8.6) Lymphocytes # (Auto) 3.5 10 ^3/uL (0.4-5.4) Monocytes # (Auto) 1.6 10 ^3/uL (0-1.3) Eosinophils # (Auto) 0.1 10 ^3/uL (0-0.8) Basophils # (Auto) 0 10 ^3/uL (0-0.2) Nucleated Red Blood Cells 0.0 % Sodium Level 139 mmol/L (136-145) Potassium Level 4.4 mmol/L (3.5-5.1) Chloride Level 106 mmol/L (98-107) Carbon Dioxide Level 24 mmol/L (20-31) Anion Gap 9 (5-15) Blood Urea Nitrogen 10 mg/dL (9-23) Creatinine 0.84 mg/dL (0.550-1.02) Glomerular Filtration Rate Calc 96 mL/min (>90) BUN/Creatinine Ratio 11.9 (10.0-20.0) Serum Glucose 96 mg/dL (74-106) Calcium Level 9.0 mg/dL (8.7-10.4) Total Bilirubin 0.5 mg/dL (0.2-1.0) Aspartate Amino Transferase (AST) 25 U/L (13-40) Alanine Aminotransferase (ALT) 14 U/L (7-40) Alkaline Phosphatase 123 U/L (46-116) Total Protein 6.4 g/dL (5.7-8.2) Albumin 3.7 g/dL (3.2-4.8) Treponema pallidum Antibody Non-reactive (Negative) Hepatitis C Antibody Negative (Negative) Prothrombin Time 10.5 sec (9.3-11.8) Prothrombin Time INR 0.99 (0.9-1.15) Activated Partial Thromboplast Time 30.4 SEC (24.5-34.5) Uric Acid 4.3 mg/dL (3.1-7.8) Urine Color Light-yellow (Yellow) Urine Clarity Clear (Clear) Urine pH 7.0 (5.0-9.0) Urine Specific [place] 1.014 (1.001-1.035) Urine Protein Negative (Negative) Urine Ketones Trace (Negative) Urine Blood Negative /uL (Negative) Urine Nitrite Negative (Negative) Urine Bilirubin Negative (Negative) Urine Urobilinogen Normal mg/dL (Negative) Urine Leukocyte Esterase Negative /uL (Negative) Urine RBC 1 /hpf (0 - 4) Urine Microscopic WBC 1 /HPF (0-5) Urine Squamous Epithelial Cells Few /hpf (<5) Urine Bacteria Few /hpf (None Seen) Urine Creatinine 68.67 mg/dL (30.0-125.0) Urine Protein/Creatinine Ratio 0.15 Urine Glucose Normal mg/dL (Normal) Urine Total Protein 10.0 mg/dL (1-14) Urine Opiates Screen Neg (NEGATIVE) Urine Fentanyl Screen Neg (NEGATIVE) Urine Barbiturates Screen Neg (NEGATIVE) Urine Phencyclidine Screen Neg (NEGATIVE) Urine Amphetamines Screen Neg (NEGATIVE) Urine Benzodiazepines Screen Neg (NEGATIVE) Urine Cocaine Screen Neg (NEGATIVE) Urine Cannabinoids Screen Neg (NEGATIVE) Other Laboratory Tests 08/10/25 03:41 Brief Hx & Hospital Course: Patient arrived in labor she progressed and had cephalopelvic disproportion was taken to the by Dr. Varun hudson the she underwent without complications postop day 2 stable for discharge home ambulating tolerating her diet afebrile passing flatus voiding without difficulty minimal lochia. Consults/Reason for consult None Operations or Procedures section Condition at Discharge: Good Final Diagnosis/Problems List IUP 40 wk, Term Discharge Disposition: Home Discharge Instruct/Medications Diet: Regular Activity: Light activity Follow Up/Referral: as scheduled Medications: NA Scheduled PRN Hydrocodone-Acetaminophen (Hydrocodone Bitartrate/AC 5-325 mg), 1 TAB PO Q6HPRN PRN Ibuprofen Micronized (Ibuprofen), 800 MG PO Q8HPRN PRN Miscellaneous Medications Vit W/ Ferrous Fumara (Pnv Plus Multivi), 1 OR, (Reported) Discharge Statement: "Patient was advised to return to the ER or call 911 if any headaches, dizziness, shortness of breath, chest pain, abdominal pain, bleeding, fevers, or worsening of medical condition. Patient was counseled about treatment plan, medications, possible side effects, patientverbalized understanding. All questions were answered to the best of my ability. This discharge took greater then 30 minutes in planning, reviewing documentation, counseling the patient, and discussing with other team members." ASSESSMENT ASSESSMENT Assessment IUP 40 wk, Term Visit Coding OBGYN Date of Service: Aug 11, 2025 Billing Provider: MANJULA MOYER DO RUBBER PROCESS HAND Common Visit Codes: 41177-[id number] SAME DATE (HIGH) RUBBER [employer]ESS HAND Procedure Codes: [id number] OB CARE, DEL MANJULA MOYER DO Aug 11, 2025 05:49
[2025-08-11 06:45] VITALS: BP 121/73; PULSE 72; RESP 18; TEMP 98.2; O2SAT 97
[2025-08-11] MEDS ORDERED: DOCU1CAP46 PO (10:05)
[2025-08-11] MEDS ORDERED: PREN1TAB71 PO (10:05)
[2025-08-11] MEDS ORDERED: HYDR-4902 PO (10:36)
[2025-08-11] MEDS: MEASLES, MUMPS & RUBELLA VAC(MMRII) 0.5ML SC ONE (11:07)
== END 2025-08-11 12:23 | disposition home or self-care (01) | DRG 788 ==
LOC: LDRP 09:08 → OBSVTOIN 15:00 → LDRP 08-09 08:12
PROVIDERS: ADMIT Obstetrics & Gynecology; ATTEND Obstetrics & Gynecology
PROC: 10D00Z1 Extraction of Products of Conception, Low, Open Approach (ICD-10-PCS; principal; 2025-08-09 02:44)
DX: O48.0 Post-term pregnancy (principal); O33.9 Maternal care for disproportion, unspecified; O77.0 Labor and delivery complicated by meconium in amniotic fluid; O62.2 Other uterine inertia; O64.0XX0 Obstructed labor due to incomplete rotation of fetal head, not applicable or unspecified; Z37.0 Single live birth; Z3A.40 40 weeks gestation of pregnancy
CPT/HCPCS: 36415; 59025; 62282; 76819; 80053; 80307; 81001; 82570; 84156; 84550; 85025; 85610; 85730; 86780; 86803; 86850; 86900; 86901; 94760; 94762; 96360; 96361; 96365; 96366; 96372; 96374; 96375; G0378; J0131; J1885; J2250; J2405; J2590